=== PATIENT | female | born 1965 | race Caucasian/White ===

== ENCOUNTER → 2017-11-22 | Outpatient (CLI) | payer OTHER ==
--- NOTE | ~2017-11-22 | TST ---
[facility] [employer] [place] [address] TREADMILL STRESS TEST Name: RICK HAHN Room #: REG CL Jose DanielJose Daniel#: [id number] Admission: 11/22/17 Attend Phys: Bozena Navas DO Discharge: Date of : 67 Date of Service: 11/22/17 1345 Report #: [id number] THIS REPORT FOR: //name// APPROVED REPORT Patient Location: Out-Patient Room #: CV Stress Nurse: Nydia Mensah RN Procedure: Exercise treadmill study Edmundo protocol Indications: 52-year-old female patient with epigastric and chest discomfort Brief description of procedure: After informed consent was obtained the patient was brought to the exercise treadmill suite in stable condition. Resting heart rate of 85 beats per minutes and blood pressure 171/92 was noted. Baseline electrocardiogram demonstrated normal sinus rhythm with T-wave inversions in the inferior leads aVF 2 and 3. The patient underwent regular Edmundo protocol exercise treadmill protocol reaching a maximal heart rate of 150 bpm which is 88% of predicted maximal heart rate. Total exercise time was 6 minutes 48 seconds and the study was stopped secondary to fatigue. Continuous elective cartographic monitoring demonstrated no significant ST segment changes diagnostic of ischemia. Maximal systolic blood pressure was 270 mmHg. The patient achieved 8.2 METs Inclusions: 1. Subjectively negative for ischemia at this heart rate and double product 2. Elective cardiographic C negative for ischemia at this heart rate and double product 3. Reduced functional capacity Conclusion <ELECTRONICALLY SIGNED> By: Rene Rangel MD 11/22/17 1345 1345 1345 Rene Rangel MD /INF
== END ==
LOC: CV 11-21 09:55
DX: R07.9 Chest pain, unspecified (principal); M54.9 Dorsalgia, unspecified; R10.13 Epigastric pain